=== PATIENT | male | born 1985 | race Caucasian/White ===

== ENCOUNTER 2021-11-16 04:38 | Emergency (ER) | payer MEDICAID ==
[~2021-11-16] VITALS: Ht 167.6 cm; Wt 65.8 kg
[2021-11-16 04:40] VITALS: BP_SYST 129
--- NOTE | 2021-11-16 04:41 | NUR ---
Patient to ER bed 5 to gown for evaluation. Side rails up. Report given to Kaity PORTER(reg).
--- NOTE | 2021-11-16 04:56 | NUR ---
Patient left without being seen, refused care. Patient said "I do not want care here" and walked out of ED. Educated patient on risk and told they can return at anytime for evaluation Addendum: 11/16/21 at 0458 by [id number] charge nurse aware of patient status
== END 2021-11-16 04:56 | disposition left against medical advice (07) ==
LOC: SED 04:38
DX: M79.10 Myalgia, unspecified site (principal); Z53.21 Procedure and treatment not carried out due to patient leaving prior to being seen by health care provider

== ENCOUNTER 2021-12-19 20:49 | Emergency (ER) | payer MEDICAID ==
[~2021-12-19] VITALS: Ht 165.1 cm; Wt 68.0 kg
[2021-12-19 20:53] VITALS: BP_SYST 130
--- NOTE | 2021-12-19 22:00 | NUR ---
Patient left without being seen. No further treatment provided. ER MD aware
== END 2021-12-19 22:00 | disposition left against medical advice (07) ==
LOC: SED 20:49
DX: M79.671 Pain in right foot (principal); R51.9 Headache, unspecified; Z53.21 Procedure and treatment not carried out due to patient leaving prior to being seen by health care provider; Y93.89 Activity, other specified; Y92.89 Other specified places as the place of occurrence of the external cause; Y99.8 Other external cause status